=== PATIENT | male | born 1945 | race Two or more races ===

== ENCOUNTER 2024-05-10 11:49 | Inpatient (IN) | payer OTHER ==
[~2024-05-10] VITALS: Ht 165.1 cm; Wt 68.0 kg
[~2024-05-10 11:49] MED LIST: CIPRO750 MG PO; Colace 100MG PO; NEURONTIN PO; Oxycodone-Apap 5-325 MG Tab PO; Zolpidem Tartrate 10MG PO
--- NOTE | 2024-05-10 13:26 | NUR ---
PTE ALERTA Y ORIENTADO X3 REFIERE VENIR A BALDEMAR DEBIDO A QUE EL MISMO REFIERE QUE [facility] DE JONO ([facility]) LO REFIRIO A SAMUEL BALDEMAR DE ERMERGENCIAS DEBIDO A QUE EL MISMO TIENE LOS OJOS DE COLOR JANDUICE. FAMILIAR DE PTE TIENE EN MANO RESULTADOS DE LABORATORIO DE [facility].
--- NOTE | 2024-05-10 13:40 | NUR ---
SE REALIZA EKG EL CUAL ES EVALUADO POR EL DR TIDWELL .
[2024-05-10] MEDS ORDERED: 0.9 % SODIUM CHLORIDE 1,000 ML IV SCH ×2 (14:00→20:15)
[2024-05-10] MEDS ORDERED: DIATRIZOATE MEGLUMINE, SODIUM 30 ML BOTTLE ONE (14:04)
--- NOTE | 2024-05-10 14:27 | NUR ---
PTE EVALUADO POR EL DR. ROBERTS. RN L TRAVIS CANALIZA, COLECTA MUESTRA DE LAB Y ADMINISTRA MEDICAMENTO GADIEL ORDEN MEDICA GADIEL ORDEN MEDICA BAJO MEDIDAS AEPTICAS. SE COMIENZA OCNTRASTE PO PARA ESTUDI DE CT YA NOTIFICADO.
--- NOTE | 2024-05-10 14:29 | NUR ---
EVALUADO PTE. POR DR. DRISCOLL. SE ORIENTA SOBRE TRATAMIENTO, MUESTRAS TOMADAS Y SE ENVIAN AL LABORATORIO. SE HACEN ARREGLOS PARA CT SCAN Y SE CLARI PTE. EN NADIRA CON BARRANDAS ELEVADAS ACOMPANADO DE FAMILIAR. SE OBSERVA PTE. CON ICTERICIA.
[2024-05-10 14:44] LABS: HEMATOCRIT 33.5 % (39.0-48.0); HEMOGLOBIN 11.2 g/dL (13-16.00); MEAN CELL VOLUME 88.7 fL (80.0-100.00); MEAN CORPUSCULAR HEMOGLOBIN 29.6 pg (27.00-32.0); MEAN CORPUSCULAR HGB CONC 33.4 g/dl (32.0-36.0); PLATELET COUNT 136 K/uL (150-450); RED BLOOD COUNT 3.77 M/uL (4.00-6.00)
[2024-05-10 14:53] LABS: INR 1.64
[2024-05-10 14:59] LABS: RED CELL DISTRIBUTION WIDTH 19.1 % (11.5-14.5)
[2024-05-10 15:00] LABS: PROTHROMBIN TIME 17.2 SECONDS (9.0-11.5)
[2024-05-10 15:15] LABS: ALBUMIN 2.1 gm/dL (3.4-5.0); CALCIUM 8.5 mg/dL (8.5-10.1); CREATININE SERUM 1.22 mg/dL (0.70-1.30); GFR 57.75; GLOBULINA 4.3 G/DL (2.4-3.5); POTASSIUM 4.4 mEq/L (3.5-5.1); TOTAL PROTEIN 6.4 gm/dL (6.4-8.2)
[2024-05-10 15:37] LABS: BILIRUBIN TOTAL 16.77 mg/dL (0.3-1.2)
[2024-05-10 16:25] LABS: ALBUMIN 2.2 gm/dL (3.4-5.0); TOTAL PROTEIN 6.3 gm/dL (6.4-8.2)
[2024-05-10 16:28] LABS: PH,URINE 5.5 (5.0-8.0); URINE APPEARANCE Clear; URINE BILIRRUBIN Large (NEGATIVE); URINE BLOOD Negative; URINE COLOR Dark Yellow; URINE KETONE Negative (NEGATIVE); URINE LEUKOCYTE Negative; URINE NITRATE Negative; URINE PROTEIN Negative (NEGATIVE)
[2024-05-10 16:32] LABS: URINE BACTERIA 1.2 uL (0.0-1933); URINE CAST 0.14 uL (0.0-1.40); URINE EPITHELIAL CELLS 8.2 uL (0.0-38.8); URINE GLUCOSE >=1000 MG/DL (NEGATIVE); URINE RBC 4.1 uL (0.0-20.8); URINE WBC 0.7 uL (0.0-23.2)
[2024-05-10 16:44] LABS: BILIRUBIN,CONJUGATED 12.97 mg/dL (0.0-0.2); BILIRUBIN,UNCONJUGATED 3.87 mg/dL (0.0-0.6)
[2024-05-10 16:47] LABS: BILIRUBIN TOTAL 16.84 mg/dL (0.3-1.2)
[2024-05-10] MEDS ORDERED: INSULIN LISPRO 1,000 UNIT/10 ML UNITS SUBCUTANEO PRN (20:00)
[2024-05-10] MEDS ORDERED: DEXTROSE 50 % IN WATER 0.5 G/ML DISP.SYRIN IV PRN (20:00)
[2024-05-10] MEDS ORDERED: ACETAMINOPHEN 650 MG SUPP.RECT RECTAL PRN (20:15)
[2024-05-10] MEDS ORDERED: hydrALAZINE HCL 20 MG VIAL IV PRN (20:15)
[2024-05-10] MEDS ORDERED: ONDANSETRON HCL 4 MG in DEXTROSE 5 % IN WATER 50 ML IV PRN (20:15)
[2024-05-11 05:38] VITALS: BP 102/57
[2024-05-11 05:54] LABS: INR 1.53; PARTIAL THROMBOPLASTIN TIME 30.6 SECONDS (22.0-34.0)
[2024-05-11 05:58] LABS: PROTHROMBIN TIME 16.2 SECONDS (9.0-11.5)
[2024-05-11 06:03] LABS: HEMATOCRIT 29.9 % (39.0-48.0); HEMOGLOBIN 10.2 g/dL (13-16.00); MEAN CELL VOLUME 87.4 fL (80.0-100.00); MEAN CORPUSCULAR HEMOGLOBIN 29.9 pg (27.00-32.0); MEAN CORPUSCULAR HGB CONC 34.3 g/dl (32.0-36.0); RED BLOOD COUNT 3.42 M/uL (4.00-6.00); RED CELL DISTRIBUTION WIDTH 18.5 % (11.5-14.5)
[2024-05-11 06:04] LABS: PLATELET COUNT 120 K/uL (150-450)
[2024-05-11 06:06] LABS: LDH 330 U/L (87-241); PHOSPHOKINASE CREATININE 160 U/L (39-308)
[2024-05-11 06:08] LABS: ERYTHROCYTE SEDIMENTATION RATE 62 mm/hr
[2024-05-11 06:19] LABS: CALCIUM 8.3 mg/dL (8.5-10.1); CHOL HDL RATIO 8.4 (0-5.0); CREATININE SERUM 0.87 mg/dL (0.70-1.30); GFR 85.32; GLOBULINA 3.3 G/DL (2.4-3.5); MAGNESIUM 1.8 mg/dL (1.8-2.4); PHOSPHOROUS 2.3 mg/dL (2.5-4.9); POTASSIUM 4.39 mEq/L (3.5-5.1); TOTAL PROTEIN 5.3 gm/dL (6.4-8.2)
[2024-05-11 06:20] LABS: BILIRUBIN,UNCONJUGATED 3.69 mg/dL (0.0-0.6); C-REACTIVE PROTEIN 10.8 MG/DL (0.00-0.29)
[2024-05-11 06:51] VITALS: BP 94/53
[2024-05-11 06:57] LABS: BILIRUBIN TOTAL 16.01 mg/dL (0.3-1.2)
[2024-05-11 06:58] LABS: BILIRUBIN,CONJUGATED 12.32 mg/dL (0.0-0.2)
[2024-05-11] MEDS ORDERED: PANTOPRAZOLE SODIUM 40 MG in 0.9 % SODIUM CHLORIDE 8 ML IV PUSH SCH (09:00)
[2024-05-11 09:08] VITALS: BP 107/51; O2SAT 97
[2024-05-11] MEDS ORDERED: PANTOPRAZOLE SODIUM 40 MG/VIAL VIAL ONE (10:05)
[2024-05-11 11:07] LABS: PH,URINE 5.5 (5.0-8.0); URINE APPEARANCE Clear; URINE BILIRRUBIN Large (NEGATIVE); URINE BLOOD Negative; URINE COLOR Dark Yellow; URINE KETONE Negative (NEGATIVE); URINE LEUKOCYTE Small; URINE NITRATE Positive; URINE PROTEIN 30 (NEGATIVE)
[2024-05-11 11:13] LABS: URINE BACTERIA 88.1 uL (0.0-1933); URINE EPITHELIAL CELLS 17.8 uL (0.0-38.8)
[2024-05-11 11:26] LABS: URINE CAST 0.88 uL (0.0-1.40); URINE GLUCOSE 250 MG/DL (NEGATIVE)
[2024-05-11] MEDS ORDERED: CEFTRIAXONE SODIUM 2,000 MG VIAL IV NR (14:00)
[2024-05-11 17:51] VITALS: BP 110/52
[2024-05-12 02:06] VITALS: BP 91/50
[2024-05-12] MEDS ORDERED: CEFTRIAXONE SODIUM 2,000 MG in DEXTROSE 5 % IN WATER 100 ML IV SCH (09:00)
[2024-05-12 09:42] VITALS: BP 96/59; O2SAT 98
[2024-05-12 14:00] LABS: HEMATOCRIT 33.7 % (39.0-48.0); HEMOGLOBIN 11.6 g/dL (13-16.00); MEAN CORPUSCULAR HEMOGLOBIN 30.2 pg (27.00-32.0); MEAN CORPUSCULAR HGB CONC 34.3 g/dl (32.0-36.0); PLATELET COUNT 148 K/uL (150-450); RED BLOOD COUNT 3.83 M/uL (4.00-6.00)
[2024-05-12 14:28] LABS: CALCIUM 8.4 mg/dL (8.5-10.1); CREATININE SERUM 0.88 mg/dL (0.70-1.30); GFR 84.2; GLOBULINA 3.7 G/DL (2.4-3.5); MAGNESIUM 2.1 mg/dL (1.8-2.4); PHOSPHOROUS 2.3 mg/dL (2.5-4.9); POTASSIUM 4.73 mEq/L (3.5-5.1); TOTAL PROTEIN 5.7 gm/dL (6.4-8.2)
[2024-05-12 14:44] LABS: BILIRUBIN TOTAL 18.16 mg/dL (0.3-1.2)
[2024-05-12] MEDS ORDERED: SIMETHICONE 125 MG CAPSULE PO SCH (18:00)
[2024-05-12 18:23] VITALS: BP 138/64
[2024-05-13 01:57] VITALS: BP 102/57; O2SAT 96
[2024-05-13] MEDS ORDERED: INSULIN NPH HUM/REG INSULIN HM 1,000 UNIT/10 ML UNITS SUBCUTANEO SCH (08:00)
[2024-05-13 09:22] VITALS: BP 118/66; O2SAT 96
[2024-05-13 17:56] VITALS: BP 134/66; O2SAT 97
[2024-05-14 00:42] VITALS: BP 122/65; O2SAT 97
[2024-05-14 05:56] LABS: HEMATOCRIT 32.7 % (39.0-48.0); HEMOGLOBIN 11.1 g/dL (13-16.00); MEAN CELL VOLUME 88.5 fL (80.0-100.00); MEAN CORPUSCULAR HEMOGLOBIN 30.1 pg (27.00-32.0); MEAN CORPUSCULAR HGB CONC 34.1 g/dl (32.0-36.0); PLATELET COUNT 158 K/uL (150-450); RED CELL DISTRIBUTION WIDTH 19.3 % (11.5-14.5)
[2024-05-14 06:04] LABS: hav igm Negative (Negative); hcv Non Reactive (Non Reactive); hep b c Negative (Negative); hep b s ag Negative (Negative)
[2024-05-14 06:42] LABS: ALBUMIN 1.7 gm/dL (3.4-5.0); CALCIUM 7.8 mg/dL (8.5-10.1); CREATININE SERUM 0.74 mg/dL (0.70-1.30); GFR 102.83; GLOBULINA 3.3 G/DL (2.4-3.5); MAGNESIUM 1.8 mg/dL (1.8-2.4); PHOSPHOROUS 2.8 mg/dL (2.5-4.9); POTASSIUM 4.51 mEq/L (3.5-5.1)
[2024-05-14 06:46] LABS: BILIRUBIN TOTAL 15.81 mg/dL (0.3-1.2)
[2024-05-14 08:29] VITALS: BP 107/66
[2024-05-14 17:47] VITALS: BP 96/58
[2024-05-14 19:40] LABS: URINE APPEARANCE Clear; URINE BILIRRUBIN Large (NEGATIVE); URINE BLOOD Negative; URINE COLOR Dark Yellow; URINE GLUCOSE Negative (NEGATIVE); URINE KETONE Trace (NEGATIVE); URINE LEUKOCYTE Small; URINE NITRATE Positive; URINE PROTEIN Trace (NEGATIVE)
[2024-05-14 19:57] LABS: URINE EPITHELIAL CELLS 12.1 uL (0.0-38.8); URINE RBC 4.8 uL (0.0-20.8)
[2024-05-14 20:11] LABS: URINE BACTERIA 0 uL (0.0-1933); URINE WBC 1.2 uL (0.0-23.2)
[2024-05-15 02:51] VITALS: BP 124/64
[2024-05-15 08:29] VITALS: BP 130/60
[2024-05-15] MEDS ORDERED: POLYETHYLENE GLYCOL 3350 17 GM BLIST.PACK PO SCH (17:00)
[2024-05-15 17:37] VITALS: BP 105/53; O2SAT 97
[2024-05-15 21:05] LABS: TP PERITONEAL FLUID 1.8 g/dl
[2024-05-16 02:23] VITALS: BP 107/62; O2SAT 96
[2024-05-16] MEDS ORDERED: INSULIN NPH HUM/REG INSULIN HM 1,000 UNIT/10 ML UNITS SUBCUTANEO SCH (08:00)
[2024-05-16 08:27] VITALS: BP 125/74
[2024-05-16] MEDS ORDERED: ALDACTONE100 MG PO (15:12)
== END 2024-05-16 15:34 | disposition home or self-care (01) | DRG 436 ==
LOC: ER 11:51 → MEDJ 21:05
PROVIDERS: Emergency Medicine; General Practice; Internal Medicine Infectious Disease; Radiology Vascular & Interventional Radiology; ADMIT Internal Medicine; ATTEND Internal Medicine
PROC: BW21YZZ Computerized Tomography (CT Scan) of Abdomen and Pelvis using Other Contrast (ICD-10-PCS; 2024-05-10)
PROC: BW40ZZZ Ultrasonography of Abdomen (ICD-10-PCS; 2024-05-10)
PROC: BW20YZZ Computerized Tomography (CT Scan) of Abdomen using Other Contrast (ICD-10-PCS; 2024-05-14)
PROC: B54MZZZ Ultrasonography of Right Upper Extremity Veins (ICD-10-PCS; 2024-05-14)
PROC: 0W9G3ZX Drainage of Peritoneal Cavity, Percutaneous Approach, Diagnostic (ICD-10-PCS; principal; 2024-05-15)
DX: C78.7 Secondary malignant neoplasm of liver and intrahepatic bile duct (principal); C20 Malignant neoplasm of rectum; J90 Pleural effusion, not elsewhere classified; R18.8 Other ascites; K74.69 Other cirrhosis of liver; E11.65 Type 2 diabetes mellitus with hyperglycemia; Z79.4 Long term (current) use of insulin; Z95.0 Presence of cardiac pacemaker; I80.8 Phlebitis and thrombophlebitis of other sites

== ENCOUNTER 2024-05-30 15:47 | Inpatient (IN) | payer OTHER ==
[~2024-05-30] VITALS: Ht 165.1 cm; Wt 70.3 kg
[~2024-05-30 15:47] MED LIST changes: +ALDACTONE100 MG PO
[2024-05-30] MEDS ORDERED: GLUMETZA1000 MG (16:09)
[2024-05-30] MEDS ORDERED: LASIX20 MG (16:10)
[2024-05-30] MEDS ORDERED: SPIRONOLACTONE1 EACH PO (16:10)
[2024-05-30 18:15] LABS: HEMATOCRIT 34.8 % (39.0-48.0); HEMOGLOBIN 11.9 g/dL (13-16.00); MEAN CELL VOLUME 91.3 fL (80.0-100.00); MEAN CORPUSCULAR HEMOGLOBIN 31.2 pg (27.00-32.0); MEAN CORPUSCULAR HGB CONC 34.1 g/dl (32.0-36.0); PLATELET COUNT 145 K/uL (150-450); RED BLOOD COUNT 3.81 M/uL (4.00-6.00); RED CELL DISTRIBUTION WIDTH 21.2 % (11.5-14.5)
[2024-05-30 18:20] LABS: INR 1.64; PARTIAL THROMBOPLASTIN TIME 27.9 SECONDS (22.0-34.0)
[2024-05-30 18:28] LABS: ALBUMIN 1.9 gm/dL (3.4-5.0); CALCIUM 8.6 mg/dL (8.5-10.1); GFR 72.65; GLOBULINA 4.3 G/DL (2.4-3.5); POTASSIUM 3.9 mEq/L (3.5-5.1); TOTAL PROTEIN 6.2 gm/dL (6.4-8.2)
[2024-05-30 18:37] LABS: BILIRUBIN TOTAL 17.13 mg/dL (0.3-1.2)
[2024-05-30 19:15] LABS: PROTHROMBIN TIME 17.2 SECONDS (9.0-11.5)
[2024-05-30 19:21] LABS: BILIRUBIN TOTAL 17.29 mg/dL (0.3-1.2); BILIRUBIN,UNCONJUGATED 3.99 mg/dL (0.0-0.6)
[2024-05-30 19:22] LABS: BILIRUBIN,CONJUGATED 13.3 mg/dL (0.0-0.2)
[2024-05-30] MEDS ORDERED: ALBUMIN HUMAN-25 0.25GM/ML (50ML) VIAL IV SCH (20:18)
[2024-05-30] MEDS ORDERED: DEXTROSE 50 % IN WATER 0.5 G/ML DISP.SYRIN IV PRN (20:30)
[2024-05-30] MEDS ORDERED: ACETAMINOPHEN 500 MG GEL..CAP PO PRN (20:30)
[2024-05-30] MEDS ORDERED: INSULIN LISPRO 1,000 UNIT/10 ML UNITS SUBCUTANEO PRN (20:30)
[2024-05-30] MEDS ORDERED: FUROsemide 20 MG/2 ML VIAL IV SCH (21:00)
[2024-05-30 22:00] VITALS: BP 102/63; O2SAT 96
[2024-05-30] MEDS ORDERED: FUROsemide 20 MG/2 ML VIAL ONE (22:12)
[2024-05-31 01:30] LABS: PH,URINE 5.5 (5.0-8.0); URINE APPEARANCE Clear; URINE BILIRRUBIN Small (NEGATIVE); URINE BLOOD Negative; URINE COLOR Dark Yellow; URINE GLUCOSE Negative (NEGATIVE); URINE KETONE Negative (NEGATIVE); URINE LEUKOCYTE Negative; URINE NITRATE Negative; URINE PROTEIN Negative (NEGATIVE); URINE UROBILINOGEN 0.2 E.U./dl
[2024-05-31 01:34] LABS: URINE CAST 1.47 uL (0.0-1.40); URINE EPITHELIAL CELLS 5.9 uL (0.0-38.8); URINE RBC 2.3 uL (0.0-20.8); URINE WBC 1.8 uL (0.0-23.2)
[2024-05-31 05:30] VITALS: BP 112/58
[2024-05-31] MEDS ORDERED: ALBUMIN HUMAN-25 0.25GM/ML (50ML) VIAL IV SCH (09:00)
[2024-05-31] MEDS ORDERED: SPIRONOLACTONE 25 MG TABLET PO SCH (09:00)
[2024-05-31] MEDS ORDERED: TAMSULOSIN HCL 0.4 MG CAP PO SCH (09:00)
[2024-05-31] MEDS ORDERED: FAMOTIDINE/PF 20 MG in 0.9 % SODIUM CHLORIDE 8 ML IV PUSH SCH (09:00)
[2024-05-31 12:23] VITALS: BP 119/59
[2024-05-31 17:00] VITALS: BP 115/60
[2024-06-01 00:47] VITALS: BP 92/57
[2024-06-01 07:58] LABS: CALCIUM 8.4 mg/dL (8.5-10.1); CREATININE SERUM 0.94 mg/dL (0.70-1.30); GFR 78.03; GLOBULINA 2.9 G/DL (2.4-3.5); HEMATOCRIT 30.6 % (39.0-48.0); HEMOGLOBIN 10.4 g/dL (13-16.00); MEAN CELL VOLUME 92.8 fL (80.0-100.00); MEAN CORPUSCULAR HEMOGLOBIN 31.5 pg (27.00-32.0); POTASSIUM 3.79 mEq/L (3.5-5.1); RED CELL DISTRIBUTION WIDTH 20.7 % (11.5-14.5); TOTAL PROTEIN 4.9 gm/dL (6.4-8.2)
[2024-06-01 07:59] LABS: BILIRUBIN,UNCONJUGATED 3.57 mg/dL (0.0-0.6)
[2024-06-01 08:00] LABS: BILIRUBIN TOTAL 14.51 mg/dL (0.3-1.2); BILIRUBIN,CONJUGATED 10.94 mg/dL (0.0-0.2)
[2024-06-01 08:34] LABS: PLATELET COUNT 117 K/uL (150-450)
[2024-06-01 09:20] VITALS: BP 117/67; O2SAT 98
[2024-06-01 17:16] VITALS: BP 118/61
== END 2024-06-01 17:53 | disposition home or self-care (01) | DRG 948 ==
LOC: ER 15:50 → MEDJ 21:10
PROVIDERS: Emergency Medicine; General Practice; Internal Medicine; ADMIT Internal Medicine; ATTEND Internal Medicine
PROC: BW40ZZZ Ultrasonography of Abdomen (ICD-10-PCS; 2024-05-30)
PROC: 0W9G3ZZ Drainage of Peritoneal Cavity, Percutaneous Approach (ICD-10-PCS; principal; 2024-05-31)
DX: R18.8 Other ascites (principal); C20 Malignant neoplasm of rectum; C78.7 Secondary malignant neoplasm of liver and intrahepatic bile duct; K74.60 Unspecified cirrhosis of liver